=== PATIENT | male | born 1940 | race Caucasian/White ===

== ENCOUNTER → 2022-06-27 | Outpatient (CLI) | payer MEDICARE, OTHER, SELFPAY ==
--- NOTE | 2022-06-27 09:21 | CT_ITS ---
STUDY: CT Lower Extremity W/O Contrast Injection 06/28/2022 6:26 PM REASON FOR EXAM: Male, 82 years old. SOCRATES TEMPLATING FOR LT ARUNA OSTEOARTHRITIS Individualized dose optimization techniques were used for this CT. TECHNIQUE: OSTEOARTHRITIS SOCRATES protocol COMPARISON: No priors for comparison. FINDINGS: A pk was placed along the lateral aspect of the patient''s lower extremity. CT scans were obtained over the hip, knee, and ankle, separately. There are calcifications of the abdominal aorta. This is consistent for atherosclerotic disease. There is NO abdominal aortic aneurysm. Vascular workup can be obtained based on clinical correlation. Degenerative findings of the hips. Degenerative findings in the lumbar spine. There is a right inguinal hernia containing fat. There is no bowel involvement. There is no incarceration. There is no findings suggesting that this is causing a bowel obstruction. Degenerative findings of the knees. There is bilateral neural foraminal stenosis at L4-5 and L5-S1. CT/Extremity Lower without Contra IMPRESSION: The images will be utilized by the surgical prosthesis cartography teacher for measurement and planning purposes.. Electronically Signed: Jamie Niño MD at 18:28 EDT ,
== END | disposition home or self-care (01) ==
LOC: CT 14:38
PROVIDERS: PCP Family Medicine; Visit Provider Student in an Organized Health Care Education/Training Program
DX: M16.12 Unilateral primary osteoarthritis, left hip (principal)
CPT/HCPCS: 73700

== ENCOUNTER 2022-07-12 10:20 | Observation (INO) | payer MEDICARE, OTHER, SELFPAY ==
--- NOTE | 2022-07-03 12:03 | EKG12_ITS ---
Test Reason : PREOP Blood Pressure : / mmHG Vent. Rate : 057 BPM Atrial Rate : 441 BPM P-R Int : 000 ms QRS Dur : 078 ms QT Int : 416 ms P-R-T Axes : 000 011 032 degrees QTc Int : 404 ms Atrial fibrillation Abnormal ECG Confirmed by JUAN WEBB, ALEX ([id number]), general expeditor LISETTE SNOW ([id number]) on 07/04/2022 10:15:02 AM Referred By: Kaleb Anne Confirmed By:ALEX MARTINEZ MD
[2022-07-03 12:07] LABS: Absolute Lymphocyte Count 1.79 X10^3/uL (0.83-4.51); Absolute Neutrophil Count 3.8 X10^3/uL (2.0-7.7); Basophil# 0.05 X10^3/uL; Basophil% 0.8 % (0-1); Eosinophil# 0.11 X10^3/uL; Eosinophils% 1.7 % (0-5); Hematocrit 41.7 % (40-54); Hemoglobin 13.9 g/dL (13.0-16.5); Lymphocyte # 1.79 X10^3/ul (0.83-4.51); Lymphocyte % 28.4 % (19-41); Mean Corp Hgb Conc 33.3 g/dL (32-36); Mean Corpuscular Volume 95.9 fL (80-94); Mean Platelet Vol. 9.3 fl (6.2-12.0); Monocyte# 0.57 X10^3/uL; NRBC Flagged by Analyzer 0 % (0-5); Neutrophil # 3.76 X10^3/uL (2.7-7.7); Neutrophil % 59.8 % (47-70); Platelet Count 139 K/mm3 (150-450); RBC Distribution Width CV 13.2 % (11.6-14.6); RBC Distribution Width SD 47.1 fl (35.1-43.9); Red Blood Count 4.35 M/mm3 (4.6-6.2); White Blood Count 6.3 K/mm3 (4.4-11.0)
[2022-07-03 12:24] LABS: Magnesium 2.1 mg/dL (1.6-2.6)
--- NOTE | 2022-07-03 12:25 | RAD_ITS ---
STUDY: X-RAY CHEST REASON FOR EXAM: Male, 82 years old. PREOP TECHNIQUE: PA and lateral views of the chest. COMPARISON: None. FINDINGS: Hyperinflation. The lungs are clear. There is no demonstrated pleural abnormality. Normal size heart. Normal mediastinum and poli. There is prominence of the pulmonary hilar arteries without peripheral pulmonary vascular congestion, suggesting pulmonary hypertension. There is atherosclerotic calcification of the aortic arch with tortuosity. There are diffuse degenerative changes of the visualized thoracic spine. Increased kyphosis. The patient is status post right shoulder replacement. Osteoarthritis of the left glenohumeral joint. Small hiatal hernia. RAD/Chest PA and Lateral IMPRESSION: Hyperinflation. Prominence of the central pulmonary arteries. Electronically Signed: Jermaine Brady MD at 13:23 EDT ,
[2022-07-03 12:28] LABS: Anion Gap 7 (5-15); BUN 26 mg/dL (7-18); BUN/Creat Ratio 16.7 RATIO (10-20); Calcium,Total 9.7 mg/dL (8.5-10.1); Chloride 104 mmol/L (98-107); Creatinine, Serum 1.56 mg/dL (0.70-1.30); EST Glomerular Filtration Rate 45 mL/min (>60); Est Glom Filt Rate - Afr Amer 55 mL/min (>60); Glucose 120 mg/dL (74-106); Potassium 4.5 mmol/L (3.5-5.1); Sodium Level 140 mmol/L (136-145)
[2022-07-03 13:11] LABS: Hemoglobin A1c 7.2 % (3.8-5.6)
--- NOTE | 2022-07-10 14:50 | CASEMGMT ---
NIESHA PICKETT Assessment: TC to pt for initial transition planning/care coordination assessment, pt answered and stated pt was getting his hair cut and is hard of hearing. She answered assessment questions. NIESHA PICKETT introduced self and role at [facility], pt voices understanding and consents to assessment. Care providers, pharmacy, and demographics verified/updated. Admitting Dx: L total knee with SOCRATES PCP:Luh Specialists:Omid, ortho; Rja, cardio; soraida Mckenzie Preferred Pharmacy: [facility] Retail Insurance: [facility], MMO Prescription Benefit: yes LW/HPOA: Pt states she is the DPOA for patient. She is aware that they can bring in to be scanned into pt chart as this is not on file at [facility]. States pt has a LW as well. LNOK: Hortencia Rodgers, Living Arrangements: Pt lives with and son in a single story house with 3 steps to enter with a rail on both sides. Pt reports pt is I in ADL's. Transportation: Pt drives self and denies concerns with transportation. Post surgery, pt family is able to transport him to medical appts. DME/HHC/SNF: Pt has a BGM with sufficient supplies as well as insulin. Pt has a cane that he normally uses but also has a FWW. Pt has grab bars in the shower. Pt has had HHC in the past but is not sure the name of the agency. Pt has no hx of SNF stays. Pt states no concerns with pt going home at time of dc. States pt has outpt therapy set up at [facility] in [place] for the first therapy session then the following sessions in [place]. Pt states no further concerns/needs. CM to follow. Advised pt to ask CM if any further question/concerns/needs arise once patient hospitalized, voices understanding. Pt Goal: Home with outpt therapy set up Plan: Home with outpt therapy set up
[2022-07-12] VITALS (14 sets, daily range): BP systolic 109–166; BP diastolic 58–80; PULSE 60–75; RESP 14–19; TEMP 36.2–36.9; O2SAT 97–100; BMI 31.0; BMI 31.1
--- NOTE | 2022-07-12 | HIP_PTH ---
PATIENT: ZACH ARANDA LOC: MS3 U#:[id number] AGE/SX: 82/M ROOM: [facility] – [place] RE07/12/[address]: Dr. Kaleb Anne DO : 1940 BED: 1 DIS: 07/13/2022 SPEC #: [id number] RECD: 07/12/22 13:06 STATUS: JOCELYN TAPIACheikh #: [id number] BRUNILDA: 07/12/22 00:[address]: Kaleb Anne DEPT: SURGICAL PATHOLOGY RECD BY: Nino Tran ENTERED: 07/12/22 13:06 SP TYPE: TOTAL HIP OTHR DR: MD Dr. Kaleb Helton MD Tissues: Hip, NOS Procedures: Decalcification bone/plaque Surgery Specimen Level IV HEADER OPERATION: ERAS, total hip replacement robotic arm assist PRE-OP DIAGNOSIS: Grade IV osteoarthritis left hip TISSUE SUBMITTED: Left hip bone MICROSCOPIC DIAGNOSIS Bone and tissue of left hip, total hip replacement: Severe degenerative joint disease. AM:dayanara 07/18/2022 MICROSCOPIC DESCRIPTION Slides are reviewed. GROSS DESCRIPTION Received is one container labeled with the patient's name and designated left hip bone. The specimen consists of a perez femoral head with portion of femoral neck. The femoral head measures 5 x 5 x 4 cm and the femoral neck measures up to 1 cm in length. The articular surface displays prominent osteophyte formation, eburnation and bone erosion. Also present in the specimen container are multiple irregular fragments of bone reamings and detached piece of bone measuring in aggregate 8 x 8 x 2 cm. Grey Percher sections are submitted in two cassettes as follows: 1 - bone reamings, 2 - femoral head after decalcification. / SJ:dayanara 07/12/2022 TC:5 CPT: 45082, 70039
[2022-07-12] MEDS: Acetaminophen 500 MG Tablet 1000 MG PO ×3 (06:18→21:52)
[2022-07-12] MEDS: Celecoxib 200 MG Capsule 400 MG PO (06:18)
[2022-07-12] MEDS: Gabapentin 600 MG Tablet PO (06:18)
[2022-07-12] MEDS: Lactated Ringers 1,000 ML 999 ML IV ×2 (06:29→10:45)
[2022-07-12] MEDS: Lactated Ringers 1,000 ML 75 ML IV ×2 (06:35→12:40)
[2022-07-12 07:15] LABS: Bedside Glucose 185 mg/dL (74-106)
[2022-07-12] MEDS: Cefazolin 2 GM in 0.9% Normal Saline 100 ML IV (07:30)
[2022-07-12] MEDS: TXA 1000mg in NS100 100ml (IVPB at Incision) 660 MG IV (08:15)
[2022-07-12] MEDS: TXA 1000mg in NS100 100ml (IVPB at Closure) 660 MG IV (09:56)
--- NOTE | 2022-07-12 10:22 | OP.PCM_ITS ---
Report of Operation Date of Procedure: 07/12/22 Description of Surgical Findings:: Preoperative diagnosis: Left hip primary osteoarthritis Postoperative diagnosis: Left hip primary osteoarthritis Procedure: Robotic assisted left total hip arthroplasty Surgeon: Kaleb Anne DO Production Control Specialist: Sherley Lane PA-C Anesthesia: General endotracheal Anesthesiologist: Jacobo Alvarado MD Complications: None apparent Drains: None Estimated blood loss: 300 cc Urinary output: none recorded IV fluids: 1500 cc crystalloid Specimens: Femoral head resection Surgical implants: Roberta Accolade two 127 degree neck angle hip stem size # 5, Biolox delta ceramic V 40 femoral head 36 mm outer diameter +2.5 mm neck length, Roberta Trident X3 10 degree polyethylene insert, Trident 2 TriTanium cluster hole acetabular shell 54 mm diameter Indications: This is an 82-year-old male seen in the outpatient setting for left hip pain. X-rays revealed severe left hip osteoarthritis. A corticosteroid intra-articular injection was attempted approximately 3 months ago. Patient noted short-term relief, but pain quickly returned. He failed oral [id number]-ciq-emmynux analgesics including NSAIDs and Tylenol, activity modification. I recommended surgical intervention the form of left total hip arthroplasty. I reviewed the procedure with the patient, its risk, benefits, alternatives. Risks included but were not limited to bleeding, infection, loss of life or limb, risk of anesthesia, neurovascular injury, persistent pain, instability, need for additional surgery, failure of orthopedic hardware, loosening, osteolysis, need for assistive devices long-term, leg length discrepancy. Patient expressed understanding wish to proceed with surgery. Description of procedure: I greeted the patient in same-day surgery holding area the day of surgery. He was identified by name, medical record number, and date of . All questions were answered to patient satisfaction. The operative extremity was marked with a surgical marker. Informed consent was confirmed with the patient. Patient brought the operative suite and positioned on the operating table. Spinal was unsuccessful converted to a general anesthesia patient was then positioned in supine position with all bony prominences well-padded. General an esthesia was induced and endotracheal tube placed. Patient was then positioned in a lateral decubitus position with the left side up. An axillary roll was placed under the patient's right axilla. The right fibular head was free. We then prepped and draped the right lower extremity in normal, sterile orthopedic fashion. Prior to the procedure, the Surendra plan was reviewed and appeared appropriate based on the patient's CT scan and anatomy. We performed a timeout with all parties in attendance in agreement with the side, site, and operation to be performed. No concerns were voiced and would like to proceed. 1 g TXA IV as well as 2 g Ancef was administered prior to the incision by anesthesia staff. 1 g TXA IV was administered at time of closure additionally. I first elected to place our pelvic array with a curvilinear incision over the left iliac crest just posterior to the ASIS. I bluntly dissected down the level of the periosteum. I then drilled 3 intracortical pins with excellent cortical purchase. Pelvic array was then assembled and positioned appropriately. I then turned my attention to the hip. A standard posterior lateral incision was made curvilinear over the posterior lateral hip, centered on the tip of the greater trochanter. Full-thickness skin incision was made, approximately 12 cm in length. I sharply dissected down the level of the fascia david. Fascia david was then incised in line with the incision. I bluntly dissected through the raphae of the gluteus papito. Femoral checkpoint was placed at this point. We then registered his femoral anatomy prior to dislocating the hip. I then internally rotated the hip. Limited gluteal bursectomy was performed to identify the short external rotators. A Cobra retractor was placed deep to his gluteus medius. Short external rotators were taken down with Bovie cautery and tagged for later repair with #2 Ethibond suture. This identified the underlying capsule. A hockey-stick shaped capsulotomy was made over the femoral neck carried posteriorly to the acetabular labrum. Labrum was released and the hip was dislocated. I then marked a standard femoral neck cut 1 fingerbreadth above the lesser trochanter. Sagittal saw was used to carefully cut the femoral neck. Femoral head was removed and examined and appeared benign. It was sent to pathology per hospital policy. I then turned my attention to the acetabulum. Cobra retractors were placed anterior and posteriorly. Self-retaining retractor was placed superiorly. Acetabular labrum was excised with a long handled knife. Acetabular pulmonary was excised with Bovie cautery. Hemostasis was excellent at this point. I then registered the acetabulum with the Angie's List robot successfully. I then brought in the Angie's List robot with the acetabular reaming arm to a size 54. This was reamed and the planned position to the planned depth. Reamer was then removed. There was excellent bleeding bone at the base and excellent remaining anterior p osterior collins of the acetabulum. Overhanging superior osteophyte was removed with a osteotome. 54 mm acetabular component was selected for and attached to the elastic tape inserter arm of the robot. I placed the acetabular component near planned position before attaching to the robot. The robot then held the cuff in position while I impacted it to an appropriate depth. The acetabular cup was then removed from the robotic arm. It had excellent rim fit. I placed a unicortical cancellous screw through the acetabular shell with excellent purchase. I then selected a 10 degree posterior lipped liner and impacted this per faculty instructor recommendations. I then turned my attention to the femur. Box chisel was then utilized to gain access to the femoral canal. Canal finder was placed. Sequential broaches were used and press-fit manner. A final size 5 achieved excellent vertical and rotational stability. We then trialed with a 127 degree hip stem as templated. A 0 and +2.5 mm neck length were trialed. The +2. 5 mm neck achieved greater stability as well as allowed some lengthening of the limb, which was desired given his contralateral hip osteoarthritis. Trials were then removed. We copiously irrigated the wound with normal saline solution, Betadine solution, and irrisept solution. A size 5 stem was then impacted with excellent fixation. Final head was then impacted over clean, dry Morris taper neck. Final reduction was performed. A posterior capsular repair was performed with #2 Ethibond suture and bone tunnels, as well as the short external rotator repair. Femoral checkpoint was removed. Pelvic array pins were removed. IT band was closed watertight with #1 strata fix suture. Deeper fascial layers were closed with 0 Vicryl suture in interrupted fashion. Subcutaneous layers were reapproximated with 2-0 Vicryl suture and skin reapproximated with running subcuticular 3-0 strata fix and skin glue. Pelvic array incision was closed with buried 2-0 Vicryl suture and skin glue.. A silver dressing was applied. Patient tolerated procedure well without complication. He was positioned back in the supine position on his hospital bed. He was transferred to PACU in stable condition. A pillow was placed between the patient's leg to be present while he is in bed. Need for skilled family services assistant: Sherley Lane PA-C was critical to the outcome of the case. During the course of the procedure the physician family services assistant played a vital role. Her intimate knowledge of my steps in the procedure aided in safe and expedient completion of the procedure. The PA played a vital role in positioning particularly in obtaining the appropriate positioning. The PA was also vital in the retraction of soft tissues during the exposure and projecting vital structures. The PA was also vital and protecting soft tissues during times of bony cuts. She also played a vital role in closure with my direct supervision. The PA was also important during reduction and dislocation of the joint and trials intraoperatively. Post Operative Plan: Patient will be placed in observation overnight given his multiple comorbidities and advanced age. Plan for discharge to home likely tomorrow. Weightbearing: Weightbearing as tolerated left lower extremity, posterior hip precautions. Pillows between legs while in bed Antibiotics: Ancef 1 g every 8 hours x 3 doses DVT Prophylaxis: Restart home Eliquis 2.5 mg twice daily to start tomorrow Boss: None Dressing: Maintain silver dressing x 5 days X-Rays: PACU x-rays were reviewed demonstrated well-positioned left total hip arthroplasty implant. Follow-up 2-week x-rays in the office. Follow-up: 2 weeks in my office as scheduled
--- NOTE | 2022-07-12 10:50 | RAD_ITS ---
STUDY: X-RAY - PELVIS AND LEFT HIP REASON FOR EXAM: Male, 82 years old. Post Op -- AP both hips on single salena/lateral of op hip PACU TECHNIQUE: 2 views of the pelvis and hip. COMPARISON: None. FINDINGS: The patient is status post left total hip replacement. There is good alignment. Postoperative soft tissue changes. RAD/Hip Min 2 Views (Portable) IMPRESSION: Status post left total hip replacement. There is good alignment. Postoperative soft tissue changes. Electronically Signed: Jermaine Brayd MD at 11:10 EDT ,
[2022-07-12 11:31] LABS: Bedside Glucose 154 mg/dL (74-106)
--- NOTE | 2022-07-12 14:27 | PCM.PN.HOSP ---
Subjective Subjective 82-year-old male presents to the hospital for an elective left total hip arthroplasty secondary to left hip osteoarthritis. Well since surgery, he is on about 4 L of oxygen. Objective Data Objective Data Vital Signs: Vital Signs Temp Pulse Resp BP Pulse Ox O2 Del Method O2 Flow Rate 98.5 F 63 19 H 121/63 H 100 Nasal Cannula 4 07/12/22 12:27 07/12/22 12:27 07/12/22 12:27 07/12/22 12:27 07/12/22 12:27 07/12/22 12:27 07/12/22 12:27 Oxygen Flow Rate (L/min) 4 Oxygen Delivery Method Nasal Cannula Weight: 198 lb 6.4 oz Body Mass Index (BMI) 31.0 Intake & Output: Intake and Output for Last 24 Hours 07/11/22 07/12/22 07/13/22 03:59 03:59 03:59 Intake Total 1888.25 / 1888.25 Balance 1888.25 / 1888.25 Lab / Micro Data Result Diagrams: 07/13/22 05:27 07/13/22 05:27 Labs: Laboratory Results - last 24 hr 07/12/22 06:13: POC Glucose 185 H 07/12/22 11:11: POC Glucose 154 H Micro: Microbiology 07/03/22 11:39 Swab (Method) Nasal Screen MRSA/MSSA - Final Radiography Diagnostic Testing: Radiology Impression Hip X-Ray 07/12/22 10:50 IMPRESSION: Status post left total hip replacement. There is good alignment. Postoperative soft tissue changes. Electronically Signed: Jermaine Brady MD at 11:10 EDT , Physical Exam Narrative General: Alert, Oriented x3, Cooperative, No apparent distress HEENT: Atraumatic, PERRLA, EOMI, Normocephalic Oral: Moist Mucosa Neck: Supple, No JVD Lungs: Clear to auscultation, Normal air movement, No rhonchi, No wheeze, No rales Cardiovascular: Regular rate, Regular Rhythm, Normal S1, Normal S2, No murmurs Abdomen: Soft, Non Tender, Non-Distended, No Hepato-splenomegaly Extremities: No edema, Capillary Refill Less than 3 Seconds Skin: Dressing intact Musculoskeletal: Minimal tenderness to surgical site Neurological: Cranial nerves II-XII grossly intact, Motor Exam 5/5 strength throughout, Sensory exam intact to light touch and pain Psych/Mental Status: Normal Affect, Appropriate Assessment & Plan Assessment/Plan (1) Status post left hip replacement: PLAN: Plan 1. Left hip osteoarthritis status post left total hip arthroplasty ? PT and OT ? Pain management per primary ? DVT prophylaxis per primary 2. A. fib/HTN ? Blood pressure stable ? Continue with metoprolol and his lisinopril and hydrochlorothiazide in the morning if pressures are stable then ? He is on Eliquis 2.5 mg p.o. twice daily 3. DM2 ? Blood pressures appear to be stable, he is on 70/30 insulin at home ? Can place him on sliding scale insulin he urine monitor ? We will hold Gilda ? We will make adjustment as necessary DVT: Eliquis Charges/Coding Visit Charges OBSV E&M: 83921 Subsequent observation care L2
[2022-07-12] MEDS: Cefazolin 1 GM/50 ML BAG IV ×2 (16:42→23:40)
[2022-07-12 17:35] LABS: Bedside Glucose 212 mg/dL (74-106)
[2022-07-12] MEDS: Senna/Docusate Sodium 1 Tablet 2 TABLET PO (21:52)
[2022-07-12] MEDS: Metoprolol Tartrate 25 MG Tablet PO (21:53)
[2022-07-12] MEDS: Insulin Lispro 100 UNIT/ML INSULN.PEN SC (21:53)
[2022-07-12 22:06] LABS: Bedside Glucose 342 mg/dL (74-106)
[2022-07-13] VITALS (8 sets, daily range): BP systolic 94–123; BP diastolic 50–73; PULSE 77–92; RESP 16–18; TEMP 36.7–37; O2SAT 97–99; BMI 31.1
[2022-07-13 06:05] LABS: Hematocrit 31.9 % (40-54); Hemoglobin 10.4 g/dL (13.0-16.5); Mean Corp Hgb Conc 32.6 g/dL (32-36); Mean Corpuscular Hgb 31.2 pg (27.0-32.0); Mean Corpuscular Volume 95.8 fL (80-94); Mean Platelet Vol. 9.7 fl (6.2-12.0); Platelet Count 103 K/mm3 (150-450); RBC Distribution Width CV 12.8 % (11.6-14.6); RBC Distribution Width SD 44.7 fl (35.1-43.9); Red Blood Count 3.33 M/mm3 (4.6-6.2); White Blood Count 7.7 K/mm3 (4.4-11.0)
[2022-07-13] MEDS: Insulin Lispro 100 UNIT/ML INSULN.PEN SC ×2 (06:20→12:20)
[2022-07-13] MEDS: Acetaminophen 500 MG Tablet 1000 MG PO ×2 (06:20→14:47)
[2022-07-13 06:31] LABS: Anion Gap 5 (5-15); BUN 30 mg/dL (7-18); Calcium,Total 8.3 mg/dL (8.5-10.1); Chloride 102 mmol/L (98-107); Creatinine, Serum 1.67 mg/dL (0.70-1.30); EST Glomerular Filtration Rate 42 mL/min (>60); Est Glom Filt Rate - Afr Amer 51 mL/min (>60); Estimated Creatinine Clearance 30.79 ml/min; Glucose 232 mg/dL (74-106); Potassium 4.3 mmol/L (3.5-5.1); Sodium Level 137 mmol/L (136-145)
[2022-07-13 06:45] LABS: Bedside Glucose 211 mg/dL (74-106)
--- NOTE | 2022-07-13 07:23 | PCM.PN.ORT ---
Subjective Subjective Patient seen and examined this morning. Urinary retention reported from patient and nursing. Straight cath x2 overnight. Denies significant pain. Denies fevers, chills, nausea vomiting, chest pain or shortness of breath. Tolerating oral intake. Patient eager to go home but concerned about ability to urinate. Objective Data Objective Data Vital Signs: Vital Signs Temp Pulse Resp BP Pulse Ox O2 Del Method O2 Flow Rate 98.0 F 81 16 108/64 97 Room Air 4 07/13/22 03:26 07/13/22 03:26 07/13/22 03:26 07/13/22 03:07/13/22 07:06 07/13/22 07:06 07/12/22 19:55 Oxygen Flow Rate (L/min) 4 Oxygen Delivery Method Room Air Weight: 198 lb 6.4 oz Body Mass Index (BMI) 31.0 Intake & Output: Intake and Output for Last 24 Hours 07/11/22 07/12/22 07/13/22 23:59 23:59 23:59 Intake Total 3338.25 / 3588.25 1401.75 / 1401.75 Output Total 1000 / 1000 Balance 3338.25 / 2988.25 401.75 / 401.75 Lab / Micro Data Attestation: I reviewed the patient's lab results. Result Diagrams: 07/13/22 05:27 07/13/22 05:27 Labs: Laboratory Results - last 24 hr 07/12/22 11:11: POC Glucose 154 H 07/12/22 17:11: POC Glucose 212 H 07/12/22 21:43: POC Glucose 342 H 07/13/22 05:27: WBC 7.7, RBC 3.33 L, Hgb 10.4 L, Hct 31.9 L, MCV 95.8 H, MCH 31.2, MCHC 32.6, RDW Std Deviation 44.7 H, RDW Coeff of Brianna 12.8, Plt Count 103 L, MPV 9.7 07/13/22 05:27: Sodium 137, Potassium 4.3, Chloride 102, Carbon Dioxide 30.0, Anion Gap 5, BUN 30 H, Creatinine 1.67 H, Estim Creat Clear Calc 30.79, Est GFR (MDRD) Af Amer 51 L, Est GFR (MDRD) Non-Af 42 L, BUN/Creatinine Ratio 18.0, Glucose 232 H, Calcium 8.3 L 07/13/22 06:18: POC Glucose 211 H Micro: Microbiology 07/03/22 11:39 Swab (Method) Nasal Screen MRSA/MSSA - Final Radiography Diagnostic Testing: Radiology Impression Hip X-Ray 07/12/22 10:50 IMPRESSION: Status post left total hip replacement. There is good alignment. Postoperative soft tissue changes. Electronically Signed: Jermaine Brady MD at 11:10 EDT , Physical Exam Narrative General - A&Ox3, NAD. VSS/AF Left lower extremity -incisional dressing C/D/I. SILT Sural, Saphenous, SPN, DPN, Tibial N. distributions. DP, PT 2+. BCR. DF, PF, EHL 5/5. No calf TTP. Assessment & Plan Assessment/Plan (1) Status post left hip replacement: PLAN: POD#1 s/p left robotic assisted ARUNA - Flomax ordered this morning for postoperative urinary retention. May require home-going Boss catheter x1 week if Flomax does not help. Otherwise, patient is doing well. - Pain control - Medicine following for medical management - PT/OT-posterior hip precautions, weightbearing as tolerated left lower extremity - DVT PPX -restart home Eliquis 2.5 mg twice daily today, AKBARs, ÁLVARO aldrich, early mobilization - Case management - D/C planning
[2022-07-13] MEDS: 0.9% Normal Saline 1,000 ML 125 ML IV (07:53)
[2022-07-13] MEDS: Tamsulosin HCl 0.4 MG Capsule PO (07:53)
[2022-07-13] MEDS: 0.9% Saline Lock 10 ML Syringe IV (08:04)
[2022-07-13] MEDS: traMADol 50 MG Tablet PO (08:12)
--- NOTE | 2022-07-13 09:45 | PN.HOSP_ITS ---
Subjective Subjective Urinary retention issues overnight and because of that he stopped drinking so his creatinine now went up to 1.67. Doing well otherwise Objective Data Objective Data Vital Signs: Vital Signs Temp Pulse Resp BP Pulse Ox O2 Del Method O2 Flow Rate 98.2 F 77 18 104/50 L 97 Room Air 4 07/13/22 08:05 07/13/22 08:05 07/13/22 08:05 07/13/22 08:05 07/13/22 08:05 07/13/22 08:05 07/12/22 19:55 Oxygen Flow Rate (L/min) 4 Oxygen Delivery Method Room Air Weight: 198 lb 6.4 oz Body Mass Index (BMI) 31.0 Intake & Output: Intake and Output for Last 24 Hours 07/12/22 07/13/22 07/14/22 03:59 03:59 03:59 Intake Total 4740.00 / 4740.00 Output Total 600 / 600 400 / 400 Balance 4140.00 / 4140.00 -400 / -400 Lab / Micro Data Result Diagrams: 07/13/22 05:27 07/13/22 05:27 Labs: Laboratory Results - last 24 hr 07/12/22 11:11: POC Glucose 154 H 07/12/22 17:11: POC Glucose 212 H 07/12/22 21:43: POC Glucose 342 H 07/13/22 05:27: WBC 7.7, RBC 3.33 L, Hgb 10.4 L, Hct 31.9 L, MCV 95.8 H, MCH 31.2, MCHC 32.6, RDW Std Deviation 44.7 H, RDW Coeff of Brianna 12.8, Plt Count 103 L, MPV 9.7 07/13/22 05:27: Sodium 137, Potassium 4.3, Chloride 102, Carbon Dioxide 30.0, Anion Gap 5, BUN 30 H, Creatinine 1.67 H, Estim Creat Clear Calc 30.79, Est GFR (MDRD) Af Amer 51 L, Est GFR (MDRD) Non-Af 42 L, BUN/Creatinine Ratio 18.0, Glucose 232 H, Calcium 8.3 L 07/13/22 06:18: POC Glucose 211 H Micro: Microbiology 07/03/22 11:39 Swab (Method) Nasal Screen MRSA/MSSA - Final Radiography Diagnostic Testing: Radiology Impression Hip X-Ray 07/12/22 10:50 IMPRESSION: Status post left total hip replacement. There is good alignment. Postoperative soft tissue changes. Electronically Signed: Jermaine Brady MD at 11:10 EDT , Physical Exam Narrative General: Alert, Oriented x3, Cooperative, No apparent distress HEENT: Atraumatic, PERRLA, EOMI, Normocephalic Oral: Moist Mucosa Neck: Supple, No JVD Lungs: Clear to auscultation, Normal air movement, No rhonchi, No wheeze, No rales Cardiovascular: Regular rate, Regular Rhythm, Normal S1, Normal S2, No murmurs Abdomen: Soft, Non Tender, Non-Distended, No Hepato-splenomegaly Extremities: No edema, Capillary Refill Less than 3 Seconds Skin: Dressing intact Musculoskeletal: Minimal tenderness to surgical site Neurological: Cranial nerves II-XII grossly intact, Motor Exam 5/5 strength throughout, Sensory exam intact to light touch and pain Psych/Mental Status: Normal Affect, Appropriate Assessment & Plan Assessment/Plan (1) Status post left hip replacement: PLAN: Plan 1. 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 PT and OT ? Pain management per primary ? DVT prophylaxis per primary ? Started on some IV fluids and he is taking increase p.o. intake now. He was straight cathed x2. He was started on Flomax by primary team. If he needs to be straight cath the third time would recommend inserting a Boss and having him follow-up with urology as an outpatient. Would also recommend daily Flomax on discharge as well. From a medical standpoint he still can go home today. 2. A. fib/HTN ? Blood pressure stable ? Continue with metoprolol would recommend restarting lisinopril and hydrochlorothiazide tomorrow morning after another day of good p.o. hydration. ? He is on Eliquis 2.5 mg p.o. twice daily 3. DM2 ? Blood pressures appear to be stable, he is on 70/30 insulin at home ? Can place him on sliding scale insulin he urine monitor ? We will hold [place] ? We will make adjustment as necessary DVT: Eliquis Charges/Coding Visit Charges OBSV E&M: 51241 Subsequent observation care L2
[2022-07-13] MEDS: Senna/Docusate Sodium 1 Tablet 2 TABLET PO (10:50)
[2022-07-13] MEDS: Famotidine 20 MG Tablet PO (10:51)
[2022-07-13] MEDS: APIXABAN 2.5 MG TABLET PO (10:51)
--- NOTE | 2022-07-13 11:51 | CASEMGMT ---
NIESHA CM in to pt room, pt states his plan is still to go home with outpt therapy that is set up to start on Saturday. Pt states he needs to urinate. Pt denies any further homegoing needs at this time.
--- NOTE | 2022-07-13 12:00 | CASEMGMT ---
NIESHA CM: Intro role of CM to patient and [employer] form explained re: Observation status for treatment of left hip replacement. Explained hospitalization will be paid per his insurance policy for Outpatient billing and condition will continue to be evaluated for Inpt necessity. Also let pt know that [facility] sends paper in the billing packet with their phone number if questions arise. Pt verbalizes understanding and does not have further questions. Form signed, copy made and placed in chart, and original given to pt. Eugene SPARKS RN CM
[2022-07-13 12:05] LABS: Bedside Glucose 179 mg/dL (74-106)
--- NOTE | 2022-07-13 15:57 | PCM.DC.SUM ---
Providers Date of Admission: 07/12/22 Primary Care Physician: Dr. Dominick Arvizu MD Consultations 07/12/22 10:17 Consult: Hospitalist Routine Consulting Provider: Kaleb Boss Reason for Consult: Post-op L total hip medical management EMERGENT Consult: No MD Notified: Yes Date Notified: 07/12/22 Time Notified: 12:58 Method of Notification: Text Reason For Visit: LT TOTAL KNEE W SOCRATES Diagnosis Discharge Diagnosis (1) Status post left hip replacement: Status: Acute Code(s): Z96.642 - Presence of left artificial hip joint Plan: POD#1 s/p left robotic assisted ARUNA - Flomax ordered this morning for postoperative urinary retention. May require home-going Boss catheter x1 week if Flomax does not help. Otherwise, patient is doing well. - Pain control - Medicine following for medical management - PT/OT-posterior hip precautions, weightbearing as tolerated left lower extremity - DVT PPX -restart home Eliquis 2.5 mg twice daily today, SCDs, ÁLVARO aldrich, early mobilization - Case management - D/C planning Medications at Discharge Home Medications apixaban 2.5 mg tablet (Eliquis) 2.5 mg PO BID blood thinner 06/28/22 ascorbic acid (vitamin C) 500 mg chewable tablet (Vitamin C) 500 mg PO QHS supplement 06/28/22 cholecalciferol (vitamin D3) 25 mcg (1,000 unit) capsule (Vitamin D3) 25 mcg PO QHS supplement 06/28/22 doxazosin 4 mg tablet 4 mg PO 1200 BP 06/28/22 insulin human U-100 NPH-regulr 70-30 mix 100 unit/mL subcutaneous susp (Novolin 70/30 U-100 Insulin) 6 unit subcut DAILY DM 06/28/22 insulin human U-100 NPH-regulr 70-30 mix 100 unit/mL subcutaneous susp (Novolin 70/30 U-100 Insulin) 8 unit subcut QHS DM 06/28/22 lisinopril 20 mg-hydrochlorothiazide 12.5 mg tablet 1 tab PO 1200 BP 06/28/22 metformin 500 mg tablet 500 mg PO BID DM 06/28/22 metoprolol tartrate 25 mg tablet 25 mg PO BID BP 06/28/22 multivitamin 1 cap PO LUNCH supplement 06/28/22 simvastatin 10 mg tablet 10 mg PO QHS HLD 06/28/22 sour justice extract 1,000 mg capsule (Tart Justice Extract) 2,000 mg PO DAILY supplement 06/28/22 vitamin E 400 unit tablet 400 unit PO DAILY supplement 06/28/22 zinc 50 mg tablet 50 mg PO DAILY supplement 06/28/22 acetaminophen 500 mg tablet 1,000 mg PO Q8 14 days #84 tabs 07/13/22 famotidine 20 mg tablet 20 mg PO DAILY 14 days #14 tabs 07/13/22 sennosides 8.6 mg-docusate sodium 50 mg tablet (Stool Softener-Stimulant Laxative) 2 tab PO BID 14 days #56 tabs 07/13/22 tramadol 50 mg tablet 50 - 100 mg PO Q6H PRN PRN Pain Score 4-10 7 days #56 tabs 07/13/22 Hospital Course Summary of Care Provided Minutes Spent on Discharge: 15 Hospital Course: Patient underwent uncomplicated left total hip arthroplasty 07/12/2022. He was placed in observation postoperatively for medical monitoring, pain control, and early convalescence. He did experience significant postoperative urinary retention. He required straight catheterization x2. He was able urinate a small amount with large residual. Boss catheter was placed postoperative day #1. He worked well with physical occupational therapies. Internal medicine consult was placed for normal medical management postoperatively. He was able be safely discharged to home on postoperative day #1. He is to follow-up with urology within a week for further management of postoperative urinary retention. Physical Exam Narrative General - A&Ox3, NAD. VSS/AF Left lower extremity -incisional dressing C/D/I. SILT Sural, Saphenous, SPN, DPN, Tibial N. distributions. DP, PT 2+. BCR. DF, PF, EHL 5/5. No calf TTP. Weight / BMI Weight Weight: 198 lb 6.4 oz Body Mass Index (BMI) 31.0 ABG / Lab / Microbiology Data Result Diagrams: 07/13/22 05:27 07/13/22 05:27 Laboratory: Laboratory Results - last 24 hr 07/12/22 17:11: POC Glucose 212 H 07/12/22 21:43: POC Glucose 342 H 07/13/22 05:27: WBC 7.7, RBC 3.33 L, Hgb 10.4 L, Hct 31.9 L, MCV 95.8 H, MCH 31.2, MCHC 32.6, RDW Std Deviation 44.7 H, RDW Coeff of Brianna 12.8, Plt Count 103 L, MPV 9.7 07/13/22 05:27: Sodium 137, Potassium 4.3, Chloride 102, Carbon Dioxide 30.0, Anion Gap 5, BUN 30 H, Creatinine 1.67 H, Estim Creat Clear Calc 30.79, Est GFR (MDRD) Af Amer 51 L, Est GFR (MDRD) Non-Af 42 L, BUN/Creatinine Ratio 18.0, Glucose 232 H, Calcium 8.3 L 07/13/22 06:18: POC Glucose 211 H 07/13/22 11:42: POC Glucose 179 H Microbiology: Microbiology 07/03/22 11:39 Swab (Method) Nasal Screen MRSA/MSSA - Final Meaningful Use Info Meaningful Use Diagnoses (Choose all that apply): None applicable Discharge Plan Admission Admit Date/Time: 07/12/22 10:20 Primary Reason for Your Visit: Left hip replacement Attending Provider: Kaleb Anne Primary Care Provider: Dominick Arvizu Consulting Providers: Kaleb Boss Instructions Patient Instructions: Urinary Catheter Bag Empty Clean, Leg Bag Care Dc, Boss Catheter Male Ch Additional Instructions / Restrictions: Follow preprinted instructions from your surgeon's office. Discharge Orders/Prescriptions Prescriptions: New acetaminophen 500 mg Tablet 1,000 mg PO Q8 14 Days Qty: 84 0RF sennosides-docusate sodium [Stool Softener-Stimulant Laxat] 8.6-50 mg Tablet 2 tab PO BID 14 Days Qty: 56 0RF tramadol 50 mg Tablet 50 - 100 mg PO Q6H PRN PRN (Reason: Pain Score 4-10) 7 Days Qty: 56 0RF famotidine 20 mg Tablet 20 mg PO DAILY 14 Days Qty: 14 0RF Continued metformin 500 mg Tablet 500 mg PO BID lisinopril-hydrochlorothiazide 20-12.5 mg Tablet 1 tab PO 1200 simvastatin 10 mg Tablet 10 mg PO QHS Novolin 70/30 U-100 Insulin 100 unit/mL (70-30) Suspension 6 unit SUBCUT DAILY Label Comments: Pt had 4U 07/12/22 preop at home Novolin 70/30 U-100 Insulin 100 unit/mL (70-30) Suspension 8 unit SUBCUT QHS ascorbic acid (vitamin C) [Vitamin C] 500 mg Tablet,Chewable 500 mg PO QHS vitamin E 400 unit Tablet 400 unit PO DAILY doxazosin 4 mg Tablet 4 mg PO 1200 zinc 50 mg Tablet 50 mg PO DAILY multivitamin Capsule 1 cap PO LUNCH cholecalciferol (vitamin D3) [Vitamin D3] 25 mcg (1,000 unit) Capsule 25 mcg PO QHS metoprolol tartrate 25 mg Tablet 25 mg PO BID Eliquis 2.5 mg Tablet 2.5 mg PO BID Tart Justice Extract 1,000 mg Capsule 2,000 mg PO DAILY Referrals / Follow Up: Dominick Arvizu MD [Primary Care Provider] - In 1 Week Elvis Morley MD [Med Staff - Active Staff] - Within 1 Week (Post-op urinary retention, indwelling catheter ) Kaleb Anne DO [Med Staff - Active Staff] - Within 2 Weeks Disposition Disposition (needs filled in before D/C Order can be placed): Home, Self Care
--- NOTE | 2022-07-13 16:32 | CASEMGMT ---
Social Work SW informed pt HCPOA and LW documents are not on file with [facility]. Pt voiced understanding, named Hortencia Rodgers, as agent. Pt stated would bring documents in on next visit. CLAUDIA Cowart
== END 2022-07-13 18:00 | disposition home or self-care (01) ==
LOC: SDC 10:50 → MS3 10:50
PROVIDERS: Anesthesiology; Admitting Provider Student in an Organized Health Care Education/Training Program; PCP Family Medicine; Referring Provider Student in an Organized Health Care Education/Training Program; Visit Provider Student in an Organized Health Care Education/Training Program
PROC: 8E0Y0CZ Robotic Assisted Procedure of Lower Extremity, Open Approach (ICD-10-PCS; CPT 27130; principal; 2022-07-12 07:00)
DX: M16.12 Unilateral primary osteoarthritis, left hip (principal); I48.91 Unspecified atrial fibrillation; Z79.4 Long term (current) use of insulin; E11.9 Type 2 diabetes mellitus without complications; R33.9 Retention of urine, unspecified; I10 Essential (primary) hypertension; Z79.899 Other long term (current) drug therapy; Z79.01 Long term (current) use of anticoagulants; R13.10 Dysphagia, unspecified; E78.00 Pure hypercholesterolemia, unspecified; R60.0 Localized edema; F17.290 Nicotine dependence, other tobacco product, uncomplicated
CPT/HCPCS: 27130; S2900; 01214; 36415; 51702; 71046; 73502; 80048; 82962; 83036; 83735; 85025; 85027; 87081; 88305; 88311; 93005; 94762; 96361; 96365; 96366; 97110; 97116; 97162; 97166; 97530; 97535; 99218; 99251; 99406; C1776; J7030; J7050; J7120; A4216; G0378; G0463; J2405; J3475

== ENCOUNTER → 2022-09-06 | Outpatient (CLI) | payer MEDICARE, OTHER, SELFPAY ==
--- NOTE | 2022-09-06 16:50 | MRI_ITS ---
STUDY: MRI LUMBAR SPINE WITHOUT CONTRAST REASON FOR EXAM: Male, 82 years old. POST LAMINECTOMY SYNDROME, SPINAL STENOSIS TECHNIQUE: Standardized fat and water weighted pulse sequences were obtained in the sagittal and axial planes. COMPARISON: None FINDINGS: Normal lumbar lordosis. There is no substantial scoliosis. Normal conus medullaris that terminates at L1. T12-L1, L1-2, L2-3: Endplate spondylosis. Decreased disc height and small circumferential disc bulge. Degenerative changes of the bilateral facet joints. Mild narrowing of the central canal and bilateral intervertebral neural foramina. L3-4: Endplate spondylosis. Decreased disc height and small circumferential disc bulge. Degenerative changes of the bilateral facet joints. Moderate narrowing of the central canal and severe narrowing of the bilateral intervertebral neural foramina. L4-5, L5-S1: Endplate spondylosis. Decreased disc height and small circumferential disc bulge. Degenerative changes of the bilateral facet joints. Mild narrowing of the central canal and moderate narrowing of the bilateral intervertebral neural foramina. Normal visualized sacral ala. Right renal cyst measures 4 cm. MRI/Spine Lumbar (Routine) IMPRESSION: Multilevel degenerative changes, as described above. Electronically Signed: Helena Bonilla MD at 2:15 EST ,
== END | disposition home or self-care (01) ==
LOC: MRI 16:37
PROVIDERS: PCP Family Medicine; Visit Provider Orthopaedic Surgery
DX: M48.061 Spinal stenosis, lumbar region without neurogenic claudication (principal); M96.1 Postlaminectomy syndrome, not elsewhere classified
CPT/HCPCS: 72148

== ENCOUNTER → 2024-07-24 | Outpatient (CLI) | payer MEDICARE, OTHER, SELFPAY ==
[2024-07-24 10:12] LABS: Absolute Lymphocyte Count 2.14 X10^3/uL (0.83-4.51); Absolute Neutrophil Count 3.4 X10^3/uL (2.0-7.7); Basophil# 0.04 X10^3/uL; Basophil% 0.6 % (0-1); Eosinophil# 0.23 X10^3/uL; Eosinophils% 3.5 % (0-5); Hemoglobin 12.8 g/dL (13.0-16.5); Lymphocyte # 2.14 X10^3/ul (0.83-4.51); Lymphocyte % 32.8 % (19-41); Mean Corp Hgb Conc 32.8 g/dL (32-36); Mean Corpuscular Hgb 31.1 pg (27.0-32.0); Mean Corpuscular Volume 94.7 fL (80-94); Mean Platelet Vol. 9.4 fl (6.2-12.0); Monocyte# 0.67 X10^3/uL; Monocyte% 10.3 % (0-10); NRBC Flagged by Analyzer 0 % (0-5); Neutrophil # 3.42 X10^3/uL (2.7-7.7); Neutrophil % 52.5 % (47-70); Platelet Count 148 K/mm3 (150-450); RBC Distribution Width CV 14.2 % (11.6-14.6); RBC Distribution Width SD 49.3 fl (35.1-43.9); Red Blood Count 4.12 M/mm3 (4.6-6.2); White Blood Count 6.5 K/mm3 (4.4-11.0)
[2024-07-24 10:15] LABS: Erythrocyte Sedimentation Rate 11 mm/hr (0-20)
[2024-07-24 10:36] LABS: CRP 7.46 mg/L (0.0-3.0)
== END | disposition home or self-care (01) ==
PROVIDERS: PCP Hospitalist; Referring Provider Orthopaedic Surgery; Visit Provider Orthopaedic Surgery
DX: M51.36 Other intervertebral disc degeneration, lumbar region (principal)
CPT/HCPCS: 36415; 85025; 85652; 86140